=== PATIENT | male | born 1950 | race Caucasian/White ===

== ENCOUNTER 2024-10-15 10:21 | Inpatient (IN) | payer OTHER ==
[~2024-10-15] VITALS: Ht 180.3 cm; Wt 93.4 kg
[~2024-10-15 10:21] MED LIST: AMLO5 PO
[2024-10-15] MEDS ORDERED: FentaNYL Citrate 50 MCG/ML 2 ML Injection IV ONE (10:55)
[2024-10-15 10:57] LABS: BASOPHILS ABSOLUTE AUTO 0.02 K/mm3 (0.00-0.23); BASOPHILS PERCENT AUTO 0 % (0-2); EOSINOPHILS ABSOLUTE AUTO 0.00 K/mm3 (0.00-0.68); EOSINOPHILS PERCENT AUTO 0 % (0-6); Hematocrit 29.7 % (37.0-53.0); Hemoglobin 10.7 g/dL (13.5-17.5); IMMATURE GRAN ABSOLUTE AUTO 0.06 K/mm3 (0.00-0.10); IMMATURE GRAN PERCENT AUTO 0 % (0-1); LYMPHOCYTES ABSOLUTE AUTO 0.69 K/mm3 (0.84-5.20); LYMPHOCYTES PERCENT AUTO 5 % (21-46); MONOCYTES ABSOLUTE AUTO 0.88 K/mm3 (0.16-1.47); MONOCYTES PERCENT AUTO 7 % (4-13); Mean Corpuscular HGB Conc 36.0 g/dL (31.5-36.5); Mean Corpuscular Volume 91 fL (80-100); NEUTROPHILS ABSOLUTE AUTO 11.82 K/mm3 (1.96-9.15); NEUTROPHILS PERCENT AUTO 88 % (41-73); NRBC ABSOLUTE 0.00 K/mm3 (0.00-0.02); NRBC Auto 0.0 /100 WBC (0.0-0.2); Platelet Count 133 K/mm3 (150-400); RDW Coefficient Variation 12.2 % (11.7-14.2); RDW Standard Deviation 40.9 fL (35.1-46.3)
[2024-10-15] MEDS ORDERED: ENAL10 PO (11:12)
[2024-10-15 11:44] LABS: Alanine Aminotransfer (ALT/SGP 58.0 U/L (12-78); Albumin, Blood 3.1 g/dL (3.4-5.0); Albumin/Globulin Ratio 1.1 (0.8-1.8); Anion Gap 18.0 mmol/L (3-11); Aspartate Aminotrans (AST/SGOT 98.0 U/L (12-37); Bilirubin, Total 2.8 mg/dL (0.1-1.0); Blood Urea Nitrogen 16.0 mg/dL (8-24); CO2, Blood 17.0 mmol/L (21-32); Calcium, Blood 7.7 mg/dL (8.5-10.1); Chloride, Blood 97.0 mmol/L (98-108); Creatinine, Blood 0.98 mg/dL (0.60-1.20); Globulin, Blood 2.9 g/dL (2.2-4.0); Glucose, Blood 292.0 mg/dL (70-99); Potassium, Blood 3.6 mmol/L (3.5-5.5); Sodium, Blood 128.0 mmol/L (136-145); Total Protein, Blood 6.0 g/dL (6.4-8.2)
[2024-10-15] MEDS ORDERED: Ondansetron HCl 2 MG / ML 2ML Vial IV ONE (12:00)
[2024-10-15] MEDS ORDERED: HYDROmorphone HCl/Pf 1MG SYR IV ONE ×2 (12:00→14:05)
[2024-10-15] MEDS ORDERED: Propofol 10mg/ml 20 ml Vial (Procedural) IV ONE (14:05)
[2024-10-15] MEDS ORDERED: NS 1,000 ML IV ONE (14:18)
[2024-10-15] MEDS ORDERED: Diazepam 5 MG / ML 2ML SYR IV PRN (16:05)
[2024-10-15] MEDS ORDERED: HYDROmorphone HCl/Pf 1MG SYR IV PRN (16:10)
[2024-10-15] MEDS ORDERED: Ondansetron HCl 2 MG / ML 2ML Vial IV PRN (16:10)
[2024-10-15 18:04] VITALS: BP 116/75
[2024-10-15] MEDS ORDERED: AMLO5 PO (18:20)
[2024-10-15 20:27] VITALS: BP 168/73
[2024-10-15] MEDS ORDERED: ZYRTEC10 M2 PO (22:21)
[2024-10-15] MEDS ORDERED: THERA-D2000 UNIT PO (22:22)
[2024-10-15] MEDS ORDERED: OMEP20ER PO (22:23)
[2024-10-15] MEDS ORDERED: MAGNESIUM OXID500 MG PO (22:23)
[2024-10-15] MEDS ORDERED: PRAZ5 PO (22:24)
[2024-10-15] MEDS ORDERED: ZOCOR20 MG PO (22:26)
[2024-10-16] VITALS (19 sets, daily range): BP systolic 114–177; BP diastolic 71–106
[2024-10-16] MEDS ORDERED: NS 1,000 ML IV SCH (00:05)
--- NOTE | 2024-10-16 04:07 | NUR ---
NOC SUMMARY- PT PAIN MAANGED WELL. PT CIWA 7-9 THIS SHIFT. PT RESPONDED WELL TO [facility]. PT HAS BEEN NPO SINCE [place]. NO NEW ISSUES NOTED. CALL LIGHT IN REACH.
[2024-10-16 05:41] LABS: BASOPHILS ABSOLUTE AUTO 0.02 K/mm3 (0.00-0.23); BASOPHILS PERCENT AUTO 0 % (0-2); EOSINOPHILS ABSOLUTE AUTO 0.01 K/mm3 (0.00-0.68); EOSINOPHILS PERCENT AUTO 0 % (0-6); Hematocrit 26.6 % (37.0-53.0); Hemoglobin 9.6 g/dL (13.5-17.5); IMMATURE GRAN ABSOLUTE AUTO 0.03 K/mm3 (0.00-0.10); IMMATURE GRAN PERCENT AUTO 0 % (0-1); LYMPHOCYTES ABSOLUTE AUTO 1.31 K/mm3 (0.84-5.20); LYMPHOCYTES PERCENT AUTO 13 % (21-46); MONOCYTES ABSOLUTE AUTO 0.84 K/mm3 (0.16-1.47); MONOCYTES PERCENT AUTO 8 % (4-13); Mean Corpuscular HGB Conc 36.1 g/dL (31.5-36.5); Mean Corpuscular Volume 91 fL (80-100); NEUTROPHILS ABSOLUTE AUTO 8.07 K/mm3 (1.96-9.15); NEUTROPHILS PERCENT AUTO 79 % (41-73); NRBC ABSOLUTE 0.00 K/mm3 (0.00-0.02); NRBC Auto 0.0 /100 WBC (0.0-0.2); Platelet Count 111 K/mm3 (150-400); RDW Coefficient Variation 12.3 % (11.7-14.2); RDW Standard Deviation 41.1 fL (35.1-46.3)
[2024-10-16 06:46] LABS: Anion Gap 8.0 mmol/L (3-11); Blood Urea Nitrogen 12.0 mg/dL (8-24); CO2, Blood 26.0 mmol/L (21-32); Calcium, Blood 8.0 mg/dL (8.5-10.1); Chloride, Blood 101.0 mmol/L (98-108); Creatinine, Blood 0.75 mg/dL (0.60-1.20); Glucose, Blood 137.0 mg/dL (70-99); Potassium, Blood 3.9 mmol/L (3.5-5.5); Sodium, Blood 131.0 mmol/L (136-145)
--- NOTE | 2024-10-16 10:45 | NUR ---
INTO SDS VIA BED. PT REPORTS 11/17 LEFT LOWER EXTREMITY PAIN SPLINT AND NEETU WRAP C/D/I. HISTORY AND ALLERGIES REVIEWED. BP 160'S/90'S. PT DENIES CP OR SOB. NPO STATUS CONFIRMED. PT HAS SCATTERED BRUISES, ABRASIONS, AND SKIN TEARS. RIGHT BLACK EYE NOTED AND THERE IS AN ABRASION TO THE BRIDGE OF THE NOSE NOTED. PT LEFT SHOULDER BRUISED AND PT STATES THAT IT IS VERY PAINFUL. LEFT UPPER EXTREMITY WITH SLING AND LUE ON PILLOW PER PT REQUEST.
[2024-10-16] MEDS ORDERED: Bupivacaine 0.5% W/EPI 1:200000 SDV 30 ML Vial ONE (10:47)
[2024-10-16] MEDS ORDERED: Ondansetron HCl 2 MG / ML 2ML Vial ONE (10:48)
[2024-10-16] MEDS ORDERED: Dexamethasone Sod Phos 10 MG/ML 1ML VIAL ONE (10:48)
[2024-10-16] MEDS ORDERED: FentaNYL Citrate 50 MCG/ML 2 ML Injection ONE (10:48)
[2024-10-16] MEDS ORDERED: Dexmedetomidine HCL 200 MCG / 2 ML ONE (10:53)
[2024-10-16] MEDS ORDERED: CeFAZolin Sodium 2,000 MG in NS 100 ML IV SCH ×2 (11:00→19:00)
--- NOTE | 2024-10-16 11:02 | NUR ---
LEFT AC IV SITE WITH BLOOD TO DRESSING. IV FLUSHES WELL AN POSITIVE BLOOD RETURN. DRESSING CHANGE COMPLETE TO LAC#18 PIV.
[2024-10-16] MEDS ORDERED: Tranexamic Acid 100 ML IV SCH (11:04)
[2024-10-16] MEDS ORDERED: Metoclopramide HCl 5MG / ML 2ML Vial IV PRN (12:25)
[2024-10-16] MEDS ORDERED: Ondansetron HCl 2 MG / ML 2ML Vial IV PRN (12:30)
[2024-10-16] MEDS ORDERED: HYDROmorphone HCl/Pf 1MG SYR IV PRN (12:30)
[2024-10-16] MEDS ORDERED: FentaNYL Citrate 50 MCG/ML 2 ML Injection IV PRN ×3 (12:30)
--- NOTE | 2024-10-16 15:28 | NUR ---
PT TO SURGERY WITH EMPLOYEE RELATIONS ASSISTANT'S@1045 PT ARRIVED BACK TO UNIT, POSTOP @1415. UPON ASSUMPTION OF CARE @0700. PT AXO4. L ARM IN SLING. L FOOT IN SPLINT. CAP REFILL <3SEC TO BOTH EXTREMITIES. PAIN TO BOTH NOTED - PAIN MEDS PER EMAR. PT NPO PREOP SINCE MIDNIGHT EXCEPT FOR PILLS. POST ARRIVAL, PT RESTING. VSS. L ARM REMAINS IN SLING. L LEG IN DIFFERENT SPLINTING WITH NEETU WRAP.
[2024-10-16] MEDS ORDERED: Ketorolac Tromethamine 15mg Vial IV PRN (17:15)
--- NOTE | 2024-10-16 17:46 | NUR ---
SUMMARY POST OP, PT REMAINS AXO4. COPERATIVE. TOE TOUCH TO L LEG, HAS NOT BEEN OOB, NWB TO L ARM IN SLING PER DR GARCIA. CIWAS <5 ALL SHIFT. PT USING URINAL WELL. L LEG NOW IN ACEWRAP/DRESSING, CDI. PT STATES PAIN AT TOP OF KNEE, DENIES PAIN TO ANKLE AREA. TOLERATING PO INTAKE WELL POST OP. DENYING NAUSEA/VOMITING. OTHERWISE, PT REPOSITIONING SELF IN BED WITH LITTLE STAFF ASSIST OR NONE. PAIN MEDS PER EMAR AND ICE PACK PROVIDED. USING CALL LIGHT APPROPRIATELY.
[2024-10-17 03:46] VITALS: BP 161/92
[2024-10-17 05:40] LABS: BASOPHILS ABSOLUTE AUTO 0.01 K/mm3 (0.00-0.23); BASOPHILS PERCENT AUTO 0 % (0-2); EOSINOPHILS ABSOLUTE AUTO 0.00 K/mm3 (0.00-0.68); EOSINOPHILS PERCENT AUTO 0 % (0-6); Hematocrit 24.2 % (37.0-53.0); Hemoglobin 8.5 g/dL (13.5-17.5); IMMATURE GRAN ABSOLUTE AUTO 0.04 K/mm3 (0.00-0.10); IMMATURE GRAN PERCENT AUTO 0 % (0-1); LYMPHOCYTES ABSOLUTE AUTO 1.02 K/mm3 (0.84-5.20); LYMPHOCYTES PERCENT AUTO 10 % (21-46); MONOCYTES ABSOLUTE AUTO 0.84 K/mm3 (0.16-1.47); MONOCYTES PERCENT AUTO 8 % (4-13); Mean Corpuscular HGB Conc 35.1 g/dL (31.5-36.5); Mean Corpuscular Volume 91 fL (80-100); NEUTROPHILS ABSOLUTE AUTO 8.08 K/mm3 (1.96-9.15); NEUTROPHILS PERCENT AUTO 81 % (41-73); NRBC ABSOLUTE 0.00 K/mm3 (0.00-0.02); NRBC Auto 0.0 /100 WBC (0.0-0.2); Platelet Count 87 K/mm3 (150-400); RDW Coefficient Variation 12.3 % (11.7-14.2); RDW Standard Deviation 41.0 fL (35.1-46.3)
--- NOTE | 2024-10-17 06:11 | NUR ---
SHIFT SUMMARY PT S/P LEFT TIB NAILING, LEFT LEG SPLINTED. LEFT ARM IN IN SLING NWB. PT HAS RESTED T/O THE SHIFT. PAIN MANAGED PER EMAR. PT A/OX4, BUT IS HEARD TALKING TO HIMSELF IN HIS ROOM. INC WITH URINAL THIS SHIFT REQUIERING A FULL LINEN CHANGE. CIWA SCORES ARE LOW. PT TOLEARATING PO INTAKE. VITALS STABLE. BED IN LOWEST POSITION, CALL LIGHT WITHIN REACH.
--- NOTE | 2024-10-17 06:31 | NUR ---
SHIFT SUMMARY PT S/P LAP HYSTER. PT HAS BEEN UP AND AMBULATING, AND IS VOIDING. PT REPORTS MINIMAL BLEEDING. PT HAS HAD INTERMITTENT NAUSEA AND HAS REQUIRED ANTIEMETICS. PT HAS HAD NO VOMITTING AND HAS BEEN ABLE TO HOLD DOWN INTAKE. PT DENIES PAIN. SURGICAL SITE WNL. PT INDEPENDENT IN ROOM. PLAN IS FOR DISCHARGE TODAY. PLAN OF CARE REMAINS UNCHANGED. BED IN LOWEST POSITION, CALL LIGHT WITHIN REACH.
[2024-10-17 07:12] VITALS: BP 141/84
[2024-10-17 07:44] LABS: Alanine Aminotransfer (ALT/SGP 47.0 U/L (12-78); Albumin, Blood 3.0 g/dL (3.4-5.0); Albumin/Globulin Ratio 1.0 (0.8-1.8); Anion Gap 9.0 mmol/L (3-11); Aspartate Aminotrans (AST/SGOT 67.0 U/L (12-37); Bilirubin, Total 1.2 mg/dL (0.1-1.0); Blood Urea Nitrogen 9.0 mg/dL (8-24); CO2, Blood 27.0 mmol/L (21-32); Calcium, Blood 8.0 mg/dL (8.5-10.1); Chloride, Blood 100.0 mmol/L (98-108); Creatinine, Blood 0.74 mg/dL (0.60-1.20); Globulin, Blood 2.9 g/dL (2.2-4.0); Glucose, Blood 137.0 mg/dL (70-99); Potassium, Blood 3.5 mmol/L (3.5-5.5); Sodium, Blood 132.0 mmol/L (136-145); Total Protein, Blood 5.9 g/dL (6.4-8.2)
[2024-10-17] MEDS ORDERED: Enoxaparin 40 MG/0.4 ML SYR SC SCH (09:00)
[2024-10-17 15:15] VITALS: BP 158/86
--- NOTE | 2024-10-17 16:25 | NUR ---
SUMMARY NO ACUTE CHANGES THIS SHIFT. VSS. AXO4. L ARM REMAINS IN SLING, L LEG REMAINS IN SPLINT. AWAITING SURGEON TO REDRESS LEG THOUGH DRESSING DID HAVE TO BE REINFORCED TODAY PT HAD SOME BLOOD COME THROUGH ONTO BED AFTER PHYSICAL THERAPY. REINFORCED AND EXTREMITY ELEVATED ON PILLOWS NOW. ICE BAGS BEING UTILIZED TO HELP WITH PAIN TO SHOULDER AND LEG. PT TOLERATING PO DIALUDID WELL FOR PAIN MANAGEMENT. PT TRIES TO NOT MOVE ARM TOO MUCH R/T PAIN. STATES RELIEF WITH PO DILAUDID BUT EXPRESSES CONCERNS REGARDING WHAT HE WILL DO AFTER BEING DC'D. PLAN FOR PT TO DC TO SNF, UNAWARE IF [facility] WILL HAVE A BED FOR PT OR NOT. CARE MANAGEMENT EXPLORING OPTIONS, PT AWARE. MALE PUEWICK IN PLACE TO HELP WITH VOIDING. OTHERWISE, PT RESTING OFF AND ON. INVOLVED WITH CARE.
[2024-10-17 19:36] VITALS: BP 127/90
[2024-10-18 05:02] VITALS: BP 134/79
[2024-10-18 05:42] LABS: BASOPHILS ABSOLUTE AUTO 0.02 K/mm3 (0.00-0.23); BASOPHILS PERCENT AUTO 0 % (0-2); EOSINOPHILS ABSOLUTE AUTO 0.04 K/mm3 (0.00-0.68); EOSINOPHILS PERCENT AUTO 1 % (0-6); Hematocrit 22.2 % (37.0-53.0); Hemoglobin 7.8 g/dL (13.5-17.5); IMMATURE GRAN ABSOLUTE AUTO 0.04 K/mm3 (0.00-0.10); IMMATURE GRAN PERCENT AUTO 1 % (0-1); LYMPHOCYTES ABSOLUTE AUTO 1.38 K/mm3 (0.84-5.20); LYMPHOCYTES PERCENT AUTO 21 % (21-46); MONOCYTES ABSOLUTE AUTO 0.50 K/mm3 (0.16-1.47); MONOCYTES PERCENT AUTO 8 % (4-13); Mean Corpuscular HGB Conc 35.1 g/dL (31.5-36.5); Mean Corpuscular Volume 94 fL (80-100); NEUTROPHILS ABSOLUTE AUTO 4.68 K/mm3 (1.96-9.15); NEUTROPHILS PERCENT AUTO 70 % (41-73); NRBC ABSOLUTE 0.00 K/mm3 (0.00-0.02); NRBC Auto 0.0 /100 WBC (0.0-0.2); Platelet Count 91 K/mm3 (150-400); RDW Coefficient Variation 12.5 % (11.7-14.2); RDW Standard Deviation 42.2 fL (35.1-46.3)
--- NOTE | 2024-10-18 05:53 | NUR ---
NOC SUMMARY- PT PAIN MANAGED WELL. PT RESTED WELL. PT VOIDING VIA PUREWICK DEVICE. PT DRESSING C/D/I AND L ARM REMAINS IN SLING. PT CALL LIGHT IN REACH.
[2024-10-18 06:30] LABS: Anion Gap 5.0 mmol/L (3-11); Blood Urea Nitrogen 8.0 mg/dL (8-24); CO2, Blood 31.0 mmol/L (21-32); Calcium, Blood 8.1 mg/dL (8.5-10.1); Chloride, Blood 101.0 mmol/L (98-108); Creatinine, Blood 0.71 mg/dL (0.60-1.20); Glucose, Blood 109.0 mg/dL (70-99); Potassium, Blood 3.3 mmol/L (3.5-5.5); Sodium, Blood 134.0 mmol/L (136-145)
[2024-10-18 07:34] VITALS: BP 147/85
[2024-10-18] MEDS ORDERED: Folic Acid 1 MG TAB PO SCH (09:00)
[2024-10-18] MEDS ORDERED: MINIPRESS5 MG PO (11:02)
[2024-10-18 15:13] VITALS: BP 150/89
--- NOTE | 2024-10-18 18:04 | NUR ---
SHIFT SUMMARY PT POST OP NAIL AND SCREW FIXATION DAY 3. PT A/OX4 AND COOPERATIVE OF CARE. PT ABLE TO EXPRESS NEEDS AND CALLED APPROPIATE. PT ABLE TO TURN SELF IN BED, NEEDED REMINDERS AT TIMES TO TURN SELF. PT VSS THROUGHOUT SHIFT WITH O2 SATS IN THE 90'S ON RA. NO REPORT OF CHEST PAIN/PRESSURE THROUGHOUT SHIFT. PT REPORTED PAIN TO LEFT SHOULDER AND LEFT LEG, TREATED WITH REPOSITIONS, ICE, AND PER EMAR. DRESSINGS ON LEFT LEG CHANGED THIS SHIFT AFTER SURGEON UNDRESSED LEG TO ASSESS SITES. PT WITH PUREWICK IN PLACE, DARK URINE NOTED. POTASSIUM LOW THIS MORNING, [facility] ORDERED AND GIVEN.
[2024-10-18 19:30] VITALS: BP 154/84
[2024-10-19 04:45] VITALS: BP 146/84
[2024-10-19 07:14] VITALS: BP 126/77
--- NOTE | 2024-10-19 08:21 | NUR ---
PT MEDICATED PRN AND PER EMAR. ORAL DILAUDID 2MG IS WORKING WELL FOR PAIN CONTROL. PT TALKING TO HIMSELF WHILE AWAKE. PLEASANT AND COOPERATIVE WITH CARE. ICE PRN TO LT SHOULDER. PT REPORTS THE SHOULDER PAIN IS WORSE THAT THE SURGICAL PAIN LLE. DRSG CHANGED YESTERDAY, DRSG C/D/I. RESTED WELL WHEN UNDISTURBED. NO ACUTE CHANGES T/O NOC.
[2024-10-19 09:37] LABS: BASOPHILS ABSOLUTE AUTO 0.05 K/mm3 (0.00-0.23); BASOPHILS PERCENT AUTO 1 % (0-2); EOSINOPHILS ABSOLUTE AUTO 0.12 K/mm3 (0.00-0.68); EOSINOPHILS PERCENT AUTO 2 % (0-6); Hematocrit 24.5 % (37.0-53.0); Hemoglobin 8.4 g/dL (13.5-17.5); IMMATURE GRAN ABSOLUTE AUTO 0.06 K/mm3 (0.00-0.10); IMMATURE GRAN PERCENT AUTO 1 % (0-1); LYMPHOCYTES ABSOLUTE AUTO 1.24 K/mm3 (0.84-5.20); LYMPHOCYTES PERCENT AUTO 17 % (21-46); MONOCYTES ABSOLUTE AUTO 0.66 K/mm3 (0.16-1.47); MONOCYTES PERCENT AUTO 9 % (4-13); Mean Corpuscular HGB Conc 34.3 g/dL (31.5-36.5); Mean Corpuscular Volume 95 fL (80-100); NEUTROPHILS ABSOLUTE AUTO 5.00 K/mm3 (1.96-9.15); NEUTROPHILS PERCENT AUTO 70 % (41-73); NRBC ABSOLUTE 0.00 K/mm3 (0.00-0.02); NRBC Auto 0.0 /100 WBC (0.0-0.2); Platelet Count 120 K/mm3 (150-400); RDW Coefficient Variation 12.8 % (11.7-14.2); RDW Standard Deviation 43.5 fL (35.1-46.3)
[2024-10-19 15:02] VITALS: BP 131/67
--- NOTE | 2024-10-19 16:07 | NUR ---
SHIFT SUMMARY POD 3 L TIB NAILING. L HUMERUS FX NONSURGICAL. VSS. MANAGING PAIN PER EMAR AND WITH ICE PACKS. ALERT AND ORIENTED X4. COMMUNICATES NEEDS EFFECTIVELY. ACEWRAP DRESSING TO LLE C/D/I - NO SHADOWING NOTED. CAP REFILL <3 SECONDS. DENIES N/T. ABLE TO WIGGLE TOES. LUE IN SLING - +1 EDEMA, RADIAL PULSE PALPATED. AMBULATING W/ 1-2P ASSIST WALKER AND GB TO CHAIR. TOLERATING PO INTAKE. VOIDING - MALE PW IN PLACE DUE TO DIFFICULTY W/ URINAL. BEDBATH COMPLETED TODAY. CALL LIGHT IN REACH.
[2024-10-19 18:41] VITALS: BP 159/83
[2024-10-19] MEDS ORDERED: Polyethylene Glycol 3350 17 gm PO SCH (21:00)
[2024-10-20 04:23] VITALS: BP 117/71
--- NOTE | 2024-10-20 05:30 | NUR ---
SHIFT SUMMARY NO ACUTE EVENTS OVERNIGHT. POD #4 L TIB/FIB NAILING. PT HAS EXTENSIVE BRUISING TO LEFT SHOULDER, LEFT SIDE/FLANK, RIGHT EYE/FACE. PT HAS MALE PUREWICK IN PLACE MOBILITY IS LESSENED AND HAS TROUBLE WITH URINAL PLACEMENT. [facility].
[2024-10-20 05:33] LABS: BASOPHILS ABSOLUTE AUTO 0.04 K/mm3 (0.00-0.23); BASOPHILS PERCENT AUTO 1 % (0-2); EOSINOPHILS ABSOLUTE AUTO 0.25 K/mm3 (0.00-0.68); EOSINOPHILS PERCENT AUTO 3 % (0-6); Hematocrit 27.0 % (37.0-53.0); Hemoglobin 9.1 g/dL (13.5-17.5); IMMATURE GRAN ABSOLUTE AUTO 0.10 K/mm3 (0.00-0.10); IMMATURE GRAN PERCENT AUTO 1 % (0-1); LYMPHOCYTES ABSOLUTE AUTO 1.80 K/mm3 (0.84-5.20); LYMPHOCYTES PERCENT AUTO 24 % (21-46); MONOCYTES ABSOLUTE AUTO 0.92 K/mm3 (0.16-1.47); MONOCYTES PERCENT AUTO 13 % (4-13); Mean Corpuscular HGB Conc 33.7 g/dL (31.5-36.5); Mean Corpuscular Volume 95 fL (80-100); NEUTROPHILS ABSOLUTE AUTO 4.27 K/mm3 (1.96-9.15); NEUTROPHILS PERCENT AUTO 58 % (41-73); NRBC ABSOLUTE 0.00 K/mm3 (0.00-0.02); NRBC Auto 0.0 /100 WBC (0.0-0.2); Platelet Count 149 K/mm3 (150-400); RDW Coefficient Variation 13.2 % (11.7-14.2); RDW Standard Deviation 44.1 fL (35.1-46.3)
[2024-10-20 05:56] LABS: Anion Gap 8.0 mmol/L (3-11); Blood Urea Nitrogen 7.0 mg/dL (8-24); CO2, Blood 32.0 mmol/L (21-32); Calcium, Blood 8.4 mg/dL (8.5-10.1); Chloride, Blood 98.0 mmol/L (98-108); Creatinine, Blood 0.73 mg/dL (0.60-1.20); Glucose, Blood 122.0 mg/dL (70-99); Potassium, Blood 3.5 mmol/L (3.5-5.5); Sodium, Blood 134.0 mmol/L (136-145)
[2024-10-20 07:30] VITALS: BP 125/80
[2024-10-20 15:06] VITALS: BP 132/83
--- NOTE | 2024-10-20 17:43 | NUR ---
SHIFT SUMMARY PT RESTING. EATING MEAL TRAY. DENIES NEEDS PRESENTLY. WILL CONTINUE TO MONITOR.
[2024-10-20 18:51] VITALS: BP 129/78
[2024-10-20 22:29] VITALS: BP 142/84
--- NOTE | 2024-10-21 03:30 | NUR ---
RN TO ROOM TO ROUND, PT SLEEPING WITH EQUAL AND UNLABORED BREATHS. CALL LIGHT WITHIN REACH.
[2024-10-21 05:40] VITALS: BP 139/84
--- NOTE | 2024-10-21 06:21 | NUR ---
SHIFT SUMMARY NOC. PT S/P LEFT TIBIA INTRAMEDULLARY NAILING AND LEFT PROXIMAL HUMERUS FX. PT A/O X4. PT MEDICATED FOR PAIN WITH REPORTED RELIEF OF SX. LLE ELEVATED, DRESSING C/D/I, AND ICE PACK ON LEFT SHOULDER. PT USING A MALE PUREWICK AND VOIDING URINE. PT MAKES NEEDS KNOWN AND RESTED WITH EYES CLOSED AND CALL LIGHT IN REACH.
[2024-10-21 07:23] VITALS: BP 124/80
[2024-10-21 11:39] VITALS: BP 135/82
[2024-10-21] MEDS ORDERED: Dextran/Hypromellose/Glycerin 15 DROP/ML BTL BOTHEYES PRN (12:15)
[2024-10-21 14:13] VITALS: BP 141/79
--- NOTE | 2024-10-21 16:39 | NUR ---
SUMMARY ASSUMED CARE OF PT @0700. AXO4. NO ACUTE CHANGES THIS SHIFT. VSS. DRESSING TO L LEG REMAINS CDI, SWELLING MINIMAL. PT RESTING L ARM ON PILLOWS WITH ICE PREDOMINANTLY THIS SHIFT EXCEPT WHEN PT GOT UP WITH PHYSICAL THERAPY INTO CHAIR. PAIN BEING MANAGED WITH Q4P PO DIALUDID. REMAINS NWB TO L ARM AND TTAT TO L LEG. AWAITING BED AT [facility], WAS HOPEFUL FOR TRANSFER TO FACILITY TODAY, BUT [facility] HAS NOT GIVEN ROOM YET OR SENT FOR REASSESMENT. HOPEFUL FOR TOMORROW, PT CONENT WITH STAYING HERE LONG NEED BE.
[2024-10-21 19:26] VITALS: BP 157/84
--- NOTE | 2024-10-22 04:32 | NUR ---
SHIFT SUMMARY NO ACUTE EVENTS OVERNIGHT. PT WITH CONTINUED USE OF PUREWICK. PT HAD LARGE BM AT BEGINNING OF SHIFT. PT WITH USE OF ICE PACK TO LEFT SHOULDER. AWAITING PLACEMENT TO [facility]; HOPEFUL TODAY.
[2024-10-22 07:22] VITALS: BP 148/85
[2024-10-22 10:26] LABS: Influenza A, PCR NEGATIVE (NEGATIVE); Influenza B, PCR NEGATIVE (NEGATIVE); Resp Syncytial Virus, PCR NEGATIVE (NEGATIVE); SARS-Cov-2 (COVID-19) PCR, MMC NEGATIVE (NEGATIVE)
--- NOTE | 2024-10-22 10:39 | NUR ---
ASSUMPTION ASSUMED CARE OF PT @0700. VSS. TOLERATING PAIN WELL. MOVING L ARM WELL, STILL PAINFUL, UTILIIZING SLING WHILE STANDING. PROPPING UP WITH PILLOWS WHEN SITTING. COVID SWAB SENT FOR [facility] DC, NEGATIVE RESULTS. PT WITH NO ACUTE CHANGES FROM LAST DAY SHIFT. PT LOOKING FORWARD TO DC'ING TO [place] [facility]. PT DRESSED, CLEANED, AND PREPARED FOR TRANSPORT SCHEDULED AT 1100 PER [facility].
--- NOTE | 2024-10-22 11:18 | NUR ---
DC @1119 NO ACUTE CHANGES POST ASSUMPTION. PT UP IN CHAIR, AWAITING RIDE TO [facility]. VSS. PAIN PILL ADMINISTERED. 1119 TRANSPORT ARRIVED, DC PAPERWORK [facility]ED [facility]. WILL CALL REPORT TO FACILITY. PT AXO4, WITH BELONGINGS. TRANSPORTED IN WHEELCHAIR WITH [facility].
--- NOTE | 2024-10-22 11:41 | NUR ---
REPORT CALLED TO LENNY SINCLAIR RN @ [phone]
== END 2024-10-22 11:16 | DRG 493 ==
LOC: ER 10:21 → SURS 16:02
PROVIDERS: Emergency Medicine; Orthopaedic Surgery Sports Medicine; ADMIT Internal Medicine
PROC: 0QSH36Z Reposition Left Tibia with Intramedullary Internal Fixation Device, Percutaneous Approach (ICD-10-PCS; principal; 2024-10-16 12:30)
DX: S82.202A Unspecified fracture of shaft of left tibia, initial encounter for closed fracture (principal); E87.1 Hypo-osmolality and hyponatremia; S42.202A Unspecified fracture of upper end of left humerus, initial encounter for closed fracture; F10.239 Alcohol dependence with withdrawal, unspecified; S82.402A Unspecified fracture of shaft of left fibula, initial encounter for closed fracture; S82.392A Other fracture of lower end of left tibia, initial encounter for closed fracture; F43.12 Post-traumatic stress disorder, chronic; I10 Essential (primary) hypertension; D72.829 Elevated white blood cell count, unspecified; D64.9 Anemia, unspecified; D69.6 Thrombocytopenia, unspecified; E86.1 Hypovolemia; W10.9XXA Fall (on) (from) unspecified stairs and steps, initial encounter; Z60.2 Problems related to living alone; Y92.009 Unspecified place in unspecified non-institutional (private) residence as the place of occurrence of the external cause; V58.4XXA Person boarding or alighting a pick-up truck or van injured in noncollision transport accident, initial encounter
CPT/HCPCS: 29505; 36415; 73030; 73590; 73700; 80048; 80053; 80320; 85025; 87637; 93005; 93010; 94760; 96374; 96375; 96376; 97110; 97162; 97530; 99152; 99285-25; A9270; J0690; J1100; J1171; J1650; J1885; J2405; J2704; J3010; J3411; J7030; J7120